=== PATIENT | female | born 1960 | race Caucasian/White ===

== ENCOUNTER 2021-01-25 23:59 | Emergency (ER) | payer MEDICARE, OTHER ==
[~2021-01-25 23:59] MED LIST: NAPROSYN500 MG PO
[2021-01-26 01:27] LABS: RED BLOOD COUNT 4.58 M/UL (4.00-5.10); WHITE BLOOD COUNT 12.2 K/UL (4.5-11.0)
[2021-01-26] MEDS ORDERED: CARDIZEM LA120 MG PO (01:31)
[2021-01-26 01:47] LABS: BUN/CREATININE RATIO 15 (0-10)
== END 2021-01-26 02:58 | disposition home or self-care (01) ==
LOC: ER1 23:59
PROVIDERS: Emergency Medicine
DX: I48.91 Unspecified atrial fibrillation (principal)
CPT/HCPCS: 71045; 80053; 82550; 82553; 83874; 83880; 84484; 85025; 93005; 99285

== ENCOUNTER 2022-04-14 05:17 | Emergency (ER) | payer MEDICARE, OTHER ==
[~2022-04-14 05:17] MED LIST changes: +CARDIZEM LA120 MG PO
[2022-04-14 06:07] LABS: HEMOGLOBIN 15.8 gm/dl (12.3-15.3); RED BLOOD COUNT 5.06 M/UL (4.00-5.10); WHITE BLOOD COUNT 10.8 K/UL (4.5-11.0)
[2022-04-14 07:01] LABS: BUN/CREATININE RATIO 16 (0-10)
== END 2022-04-14 09:34 | disposition left against medical advice (07) ==
LOC: ER1 05:17 → CDU 09:05 → ER1 09:05 → CDU 09:49
PROVIDERS: Student in an Organized Health Care Education/Training Program
DX: R07.89 Other chest pain (principal); R00.2 Palpitations; I11.9 Hypertensive heart disease without heart failure; I48.91 Unspecified atrial fibrillation; F17.210 Nicotine dependence, cigarettes, uncomplicated
CPT/HCPCS: 71045; 80053; 82550; 82553; 83880; 84439; 84443; 84484; 85025; 93005; 99283; G0378

== ENCOUNTER 2022-06-14 07:49 | Emergency (ER) | payer MEDICARE, OTHER ==
[2022-06-14 09:10] LABS: HEMOGLOBIN 14.3 gm/dl (12.3-15.3); RED BLOOD COUNT 4.62 M/UL (4.00-5.10); WHITE BLOOD COUNT 9.7 K/UL (4.5-11.0)
[2022-06-14 09:32] LABS: BUN/CREATININE RATIO 13 (0-10)
== END 2022-06-14 12:42 | disposition home or self-care (01) ==
LOC: ER1 07:49
PROVIDERS: Physician Assistant
DX: R07.89 Other chest pain (principal); I48.91 Unspecified atrial fibrillation; I10 Essential (primary) hypertension; Z79.82 Long term (current) use of aspirin; Z79.01 Long term (current) use of anticoagulants
CPT/HCPCS: 71045; 80053; 82150; 82550; 82553; 83690; 84484; 85025; 93005; 99285

== ENCOUNTER → 2022-07-11 | Outpatient (CLI) | payer MEDICARE, OTHER | LOC: HEART 5 14:30 | DX: I48.91 Unspecified atrial fibrillation (principal); R55 Syncope and collapse; R00.2 Palpitations ==